=== PATIENT | male | born 1950 | race Caucasian/White ===

== ENCOUNTER 2016-12-28 16:48 | Emergency (ER) | payer BC, OTHER ==
[2016-12-28] MEDS ORDERED: Famotidine 20 MG/2 ML SDV IVPUSH ONE (17:11)
[2016-12-28] MEDS ORDERED: diphenhydrAMINE 50 MG/ML SDV IVPUSH ONE (17:11)
[2016-12-28] MEDS ORDERED: methylPREDNISolone Sodium Succinate 125 MG/2 ML SDV IVPUSH ONE (17:11)
[2016-12-28] MEDS ORDERED: Sodium Chloride 0.9% 10 ML Syringe FLUSH PRN (17:12)
[2016-12-28] MEDS ORDERED: Sodium Chloride 0.9% 500 ML IV ONE (17:12)
[2016-12-28] MEDS ORDERED: EPINEPHrine 1 MG/ML SDV ONE (17:12)
[2016-12-28] MEDS ORDERED: Sodium Chloride 0.9% 2.5 ML Syringe FLUSH PRN (17:12)
[2016-12-28] MEDS ORDERED: EPINEPHrine 1 MG/ML SDV IM ONE (17:12)
--- NOTE | 2016-12-28 17:27 | EDM.PDOC ---
ED HPI GENERAL MEDICAL PROBLEM - General Chief Complaint: Allergic Reaction Stated Complaint: STUNK BY A BEE Time Seen by Provider: 12/28/16 17:05 Source of Information: Reports: Patient History Limitations: Reports: No Limitations - History of Present Illness INITIAL COMMENTS - FREE TEXT/NARRATIVE: History of present illness: []Patient was stung by a bee to his anterior throat prior to arrival and states he feels numbness and tingling to his upper lip and a lump in his throat. He denies any shortness of breath, faulty swallowing, dizziness or abdominal pain. Patient states he was stung about 20 years ago with about 20-30 beats at one time and has not been stung ever since. In aware that he is allergic to bees. Review of systems: As per history of present illness and below otherwise all systems reviewed and negative. Past medical history: As per history of present illness and as reviewed below otherwise noncontributory. Surgical history: As per history of present illness and as reviewed below otherwise noncontributory. Social history: No reported history of drug or alcohol abuse. Family history: As per history of present illness and as reviewed below otherwise noncontributory. Physical exam: General: Well developed, well nourished in NAD HEENT: Patient was bitten about 1 cm posterior to his chin. There is no obvious lip or tongue edema Atraumatic, normocephalic, pupils reactive, negative for conjunctival pallor or scleral icterus, mucous membranes moist, throat clear, neck supple, nontender, trachea midline. No stridor. Lungs: Clear to auscultation, breath sounds equal bilaterally, chest nontender. Heart: S1S2, regular, negative for clicks, rubs, or JVD. Abdomen: Soft, nondistended, nontender. Negative for masses or hepatosplenomegaly. Negative for costovertebral tenderness. Pelvis: Stable nontender. Genitourinary: Deferred. Rectal: Deferred. Extremities: Atraumatic, negative for cords or calf pain. Neurovascular unremarkable. Neuro: Awake, alert, oriented. Cranial nerves II through XII unremarkable. Cerebellum unremarkable. Motor and sensory unremarkable throughout. Exam nonfocal. Diagnostics: [] Therapeutics: []IV fluids epinephrine IM, Benadryl, Solu-Medrol, Pepcid IV given and observed with improvement Impression: []Bee sting with allergic reaction Plan: []Carry EpiPen, Benadryl and Pepcid as needed for itching, return to ER if any difficulty swallowing, change in voice or any other concerns otherwise follow- up with her primary care physician as needed Definitive disposition and diagnosis as appropriate pending reevaluation and review of above. - Related Data Allergies Allergy/AdvReac Type Severity Reaction Status Date / Time No Known Allergies Allergy Verified 12/28/16 17:20 Home Meds: Home Meds EPINEPHrine [Epipen] 0.3 mg IM ONETIME PRN #2 pen 12/28/16 [Rx] ED ROS ALLERGIC REACTION - Review of Systems Review Of Systems: See Below ED EXAM GENERAL NO PERIP PULSE - Physical Exam Exam: See Below (See history of present illness) Course - Vital Signs Last Recorded V/S: Last Vital Signs Temp 36.4 C 12/28/16 17:00 Pulse 102 H 12/28/16 17:51 Resp 16 12/28/16 17:51 BP 126/67 12/28/16 17:51 Pulse Ox 97 12/28/16 17:51 - Orders/Labs/Meds Orders: Active Orders 24 hr Category Date Time Status Sodium Chloride 0.9% [Saline Flush] Med 12/28/16 17:12 Active 10 ml FLUSH ASDIRECTED PRN Sodium Chloride 0.9% [Saline Flush] Med 12/28/16 17:12 Active 2.5 ml FLUSH ASDIRECTED PRN Saline Lock Insert [OM.PC] Stat Oth 12/28/16 17:11 Ordered Medication Orders Sodium Chloride (Saline Flush) 10 ml FLUSH ASDIRECTED PRN PRN Reason: Keep Vein Open Sodium Chloride (Saline Flush) 2.5 ml FLUSH ASDIRECTED PRN PRN Reason: Keep Vein Open Meds: Medications Generic Name Dose Route Start Last Admin Trade Name Freq PRN Reason Stop Dose Admin Sodium Chloride 10 ml 12/28/16 17:12 Saline Flush FLUSH ASDIRECTED PRN Keep Vein Open Sodium Chloride 2.5 ml 12/28/16 17:12 Saline Flush FLUSH ASDIRECTED PRN Keep Vein Open Discontinued Medications Generic Name Dose Route Start Last Admin Trade Name Freq PRN Reason Stop Dose Admin Diphenhydramine HCl 25 mg 12/28/16 17:11 12/28/16 17:26 Benadryl IVPUSH 12/28/16 17:12 25 mg ONETIME ONE Administration Epinephrine HCl 0.3 mg 12/28/16 17:12 12/28/16 17:19 Adrenalin 1:1000 IM 12/28/16 17:13 0.3 mg ONETIME ONE Administration Epinephrine HCl Confirm 12/28/16 17:12 12/28/16 17:30 Adrenalin 1:1000 Administered 12/28/16 17:13 Not Given Dose 1 mg .ROUTE .STK-MED ONE Famotidine 20 mg 12/28/16 17:11 12/28/16 17:26 Pepcid IVPUSH 12/28/16 17:12 20 mg ONETIME ONE Administration Sodium Chloride 500 mls @ 999 mls/hr 12/28/16 17:12 12/28/16 17:26 Normal Saline IV 12/28/16 17:42 999 mls/hr .Bolus ONE Administration Methylprednisolone Sodium Succinate 125 mg 12/28/16 17:11 12/28/16 17:26 Solu-Medrol IVPUSH 12/28/16 17:12 125 mg ONETIME ONE Administration Departure - Departure Time of Disposition: 17:57 Disposition: Home, Self-Care 01 Condition: Good Clinical Impression: Allergic reaction to bee sting - Discharge Information Prescriptions: EPINEPHrine [Epipen] 0.3 mg IM ONETIME PRN #2 pen PRN Reason: Shortness Of Breath Referrals: PCP,None [Primary Care Provider] - Additional Instructions: The following information is given to patients seen in the emergency department who are being discharged to home. This information is to outline your options for follow-up care. We provide all patients seen in our emergency department with a follow-up referral. The need for follow-up, as well as the timing and circumstances, are variable depending upon the specifics of your emergency department visit. If you don't have a primary care physician on staff, we will provide you with a referral. We always advise you to contact your personal physician following an emergency department visit to inform them of the circumstance of the visit and for follow-up with them and/or the need for any referrals to a consulting specialist. The emergency department will also refer you to a specialist when appropriate. This referral assures that you have the opportunity for follow-up care with a specialist. All of these measure are taken in an effort to provide you with optimal care, which includes your follow-up. Under all circumstances we always encourage you to contact your private physician who remains a resource for coordinating your care. When calling for follow-up care, please make the office aware that this follow-up is from your recent emergency room visit. If for any reason you are refused follow-up, please contact the [facility] Emergency Department at and asked to speak to the emergency department charge nurse. Take Benadryl and or Pepcid for itching. Use EpiPen as directed if recurrent bee sting happens only symptoms of either shortness of breath, difficulty swallowing, facial swelling or any other concerning symptoms [facility] [address] [place] [address] - My Orders Last 24 Hours: My Active Orders 12/28/16 17:11 Saline Lock Insert [OM.PC] Stat 12/28/16 17:12 Sodium Chloride 0.9% [Saline Flush] 10 ml FLUSH ASDIRECTED PRN Sodium Chloride 0.9% [Saline Flush] 2.5 ml FLUSH ASDIRECTED PRN - Assessment/Plan Last 24 Hours: My Active Orders 12/28/16 17:11 Saline Lock Insert [OM.PC] Stat 12/28/16 17:12 Sodium Chloride 0.9% [Saline Flush] 10 ml FLUSH ASDIRECTED PRN Sodium Chloride 0.9% [Saline Flush] 2.5 ml FLUSH ASDIRECTED PRN
[2016-12-28 18:19] VITALS: BP 122/90
== END 2016-12-28 18:15 | disposition home or self-care (01) ==
LOC: MW.ED 16:48
DX: T63.441A Toxic effect of venom of bees, accidental (unintentional), initial encounter (principal)
CPT/HCPCS: 96361; 96372; 96374; 96375; 99283; J0171; J1200; J2930; J7040; 99284

== ENCOUNTER 2021-08-21 21:35 | Inpatient (IN) | payer BC, MEDICARE ==
[2021-08-21] MEDS ORDERED: Sodium Chloride 0.9% 1,000 ML IV SCH (21:45)
[2021-08-21] MEDS ORDERED: ceFAZolin/Dextrose,Iso-Osmotic 2 GM/50 ML Duplex Bag (Premix) IV STA (22:01)
[2021-08-21] MEDS ORDERED: ceFAZolin 2 GM in Premix Bag 1 BAG IV ONE (22:15)
[2021-08-21 22:48] LABS: CARBON DIOXIDE,CO2 25.9 mmol/L (21.0-32.0); POTASSIUM,K 4.9 mmol/L (3.5-5.1)
[2021-08-21] MEDS ORDERED: Sodium Chloride 0.9% 1,000 ML IV ONE ×4 (22:48→23:37)
[2021-08-22] MEDS ORDERED: Lactated Ringers 1,000 ML IV ONE ×3 (08:00→22:12)
[2021-08-22] MEDS ORDERED: 50% Dextrose in Water 50 ML Syringe IVPUSH PRN (08:23)
[2021-08-22] MEDS ORDERED: Glucagon,Human Recombinant 1 MG Vial IM PRN (08:23)
[2021-08-22] MEDS ORDERED: Morphine 2 MG/ML SYRINGE IVPUSH PRN (08:25)
[2021-08-22 08:44] LABS: CARBON DIOXIDE,CO2 27.3 mmol/L (21.0-32.0); POTASSIUM,K 4.9 mmol/L (3.5-5.1)
[2021-08-22 08:52] LABS: HEMOGLOBIN A1C 6.7 %
[2021-08-22] MEDS: Enoxaparin 40 MG/0.4 ML Syringe SUBCUT SCH ×2 (09:55→20:20)
[2021-08-22] MEDS: Piperacillin/Tazobactam 3.375 GM in Sodium Chloride 0.9% 50 ML IV SCH ×3 (09:55→20:19)
[2021-08-22] MEDS ORDERED: Albuterol/Ipratropium 3.0-0.5 MG/3 ML Neb Soln NEB PRN (10:00)
[2021-08-22] MEDS: Lactated Ringers 1,000 ML IV SCH ×3 (10:54→22:11)
[2021-08-22] MEDS: Insulin Aspart 100 Units/ML 3 ML Pen SUBCUT SCH ×2 (14:44→18:09)
[2021-08-22] MEDS: Acetaminophen 325 MG Tab PO PRN ×2 (15:39→22:42)
[2021-08-22] MEDS ORDERED: atorvaSTATin 40 MG Tab PO SCH (21:00)
[2021-08-22] MEDS ORDERED: VANCOmycin 1.5 GM/300 ML 1.5 GM in Premix Bag 1 BAG IV SCH (23:00)
[2021-08-23] MEDS: Piperacillin/Tazobactam 3.375 GM in Sodium Chloride 0.9% 50 ML IV SCH ×3 (03:09→14:26)
[2021-08-23 07:03] LABS: POTASSIUM,K 4.5 mmol/L (3.5-5.1)
[2021-08-23 07:29] LABS: CARBON DIOXIDE,CO2 24.7 mmol/L (21.0-32.0)
[2021-08-23] MEDS: Insulin Aspart 100 Units/ML 3 ML Pen SUBCUT SCH ×2 (07:34→11:38)
[2021-08-23] MEDS: Enoxaparin 40 MG/0.4 ML Syringe SUBCUT SCH (08:33)
[2021-08-23] MEDS: Acetaminophen 325 MG Tab PO PRN (10:20)
[2021-08-23] MEDS: Lactated Ringers 1,000 ML IV SCH (15:58)
[2021-08-23 16:30] VITALS: BP 101/53; PULSE 83
== END 2021-08-23 17:00 | DRG 638 ==
LOC: MW.ED 21:35 → MW.MS 08-22 04:33
PROVIDERS: ADMIT Student in an Organized Health Care Education/Training Program; ATTEND Student in an Organized Health Care Education/Training Program
DX: E11.69 Type 2 diabetes mellitus with other specified complication (principal); M86.8X6 Other osteomyelitis, lower leg; L03.115 Cellulitis of right lower limb; N20.1 Calculus of ureter; N17.9 Acute kidney failure, unspecified; E11.621 Type 2 diabetes mellitus with foot ulcer; K80.20 Calculus of gallbladder without cholecystitis without obstruction; K44.9 Diaphragmatic hernia without obstruction or gangrene; I77.89 Other specified disorders of arteries and arterioles; R60.0 Localized edema; I70.0 Atherosclerosis of aorta; Z91.19 Patient's noncompliance with other medical treatment and regimen; M86.8X7 Other osteomyelitis, ankle and foot; Z79.899 Other long term (current) drug therapy; Z91.030 Bee allergy status; Z20.822 Contact with and (suspected) exposure to COVID-19
CPT/HCPCS: 36415 ×2; 71045; 73620; 73700; 74176; 80053; 82009; 83605 ×2; 83735; 83880; 84443; 85025; 85610; 85652; 85730; 87040 ×2; 87070; 87075; 87205; 93005; 96365; 96366; 96367; 99285; J0690; J3370; J7030 ×2; J7050; U0002; 80048; 80061; 82728; 82947; 83036; 83550; 84100; 86850; 86900; 86901; 86920; 87077; 87186; 93970; 93970-26; 99221; 99239; A9270-GY; J1650; J2543; J7120